=== PATIENT | female | born 1995 | race Caucasian/White ===

== ENCOUNTER 2025-04-29 08:00 | Day surgery (SDC) | payer OTHER ==
[2025-04-29] MEDS ORDERED: hydrALAZINE 20 MG/ML VIAL SLOW IVP PRN (09:31)
== END 2025-04-29 11:20 | disposition home or self-care (01) ==
LOC: CSHLD/OP 08:00
PROVIDERS: ATTEND Obstetrics & Gynecology
DX: O47.1 False labor at or after 37 completed weeks of gestation (principal); Z3A.40 40 weeks gestation of pregnancy; Z67.10 Type A blood, Rh positive; Z79.899 Other long term (current) drug therapy
CPT/HCPCS: 99283